=== PATIENT | male | born 1980 | race African-American/Black ===

== ENCOUNTER 2020-03-01 13:16 | Emergency (ER) | payer OTHER ==
[~2020-03-01] VITALS: Ht 175.3 cm; Wt 81.2 kg
[2020-03-01 13:50] VITALS: BP 178/98
[2020-03-01] MEDS ORDERED: ACETAMINOPHEN 500 MG TAB PO ONE (15:00)
[2020-03-01] MEDS ORDERED: ONDANSETRON ODT 4 MG TAB PO ONE (15:45)
[2020-03-01] MEDS ORDERED: PROMETHAZINE HCL 25 MG/ML 1ML IM ONE (15:45)
== END 2020-03-01 16:29 | disposition home or self-care (01) ==
LOC: EDBD 13:16 → ER 13:16
DX: S01.01XA Laceration without foreign body of scalp, initial encounter (principal); S06.899A Other specified intracranial injury with loss of consciousness of unspecified duration, initial encounter; R51.9 Headache, unspecified; W18.09XA Striking against other object with subsequent fall, initial encounter; Y93.89 Activity, other specified; Y92.89 Other specified places as the place of occurrence of the external cause; Y99.8 Other external cause status
CPT/HCPCS: 12004; 70450; 96372; 99284; J2550

== ENCOUNTER 2020-03-10 10:28 | Emergency (ER) | payer OTHER ==
[~2020-03-10] VITALS: Ht 177.8 cm; Wt 79.4 kg
[2020-03-10 11:34] VITALS: BP 133/95
== END 2020-03-10 12:42 | disposition home or self-care (01) ==
LOC: ER 10:28
DX: S01.01XD Laceration without foreign body of scalp, subsequent encounter (principal); X58.XXXD Exposure to other specified factors, subsequent encounter

== ENCOUNTER 2020-03-14 20:26 | Emergency (ER) | payer OTHER ==
[~2020-03-14] VITALS: Ht 177.8 cm; Wt 79.4 kg
[2020-03-14 20:50] VITALS: BP 134/94
== END 2020-03-14 23:56 | disposition home or self-care (01) ==
LOC: ER 20:26
DX: S01.01XD Laceration without foreign body of scalp, subsequent encounter (principal); X58.XXXD Exposure to other specified factors, subsequent encounter